=== PATIENT | female | born 1975 | race Caucasian/White ===

== ENCOUNTER 2016-09-24 08:22 | Emergency (ER) | payer SELFPAY ==
[~2016-09-24] VITALS: Ht 157.5 cm; Wt 62.0 kg
[~2016-09-24 08:22] MED LIST: DOXY100T PO; HYDR-3533 PO; ZOFR4TAB3 SL
[2016-09-24 08:25] VITALS: BP 119/78; PULSE 80; RESP 22; TEMP 98.7; O2SAT 100
[2016-09-24 08:42] VITALS: RESP 20; O2SAT 99
[2016-09-24] MEDS ORDERED: ALBU6.7H INH (08:52)
[2016-09-24] MEDS ORDERED: PRED50 PO (08:52)
--- NOTE | 2016-09-24 08:52 | PD ---
HPI Chief Complaint: Respiratory Symptoms Time Seen by Provider: 08:46 Travel History International Travel<30 days: No Contact w/Intl Traveler<30days: No Traveled to known affect area: No History of Present Illness HPI 41-year-old female with history of asthma, presents to the ER today with 3 days history of cough, wheezing, shortness of breath, symptomatic of her asthma. She states that she had ran out of her medications, recently moved from [place]. She denies any fevers, vomiting, chest pains, or any other symptoms. Modifying Factors: None Associated Signs & Symptoms: Cough, shortness of breath, wheezing Risk Factors: Asthma PFSH Past Medical History Asthma: Yes Diminished Hearing: No Respiratory: Yes (asthma) Tetanus Vaccination: > 5 Years Influenza Vaccination: No ?: Not LMP: 09/13/16 Tubal Ligation: Yes Social History Alcohol Use: No Tobacco Use: Yes Substance Use: No Allergies-Medications (Allergen,Severity, Reaction): Coded Allergies: No Known Allergies (Unverified , 09/24/16) Reported Meds & Prescriptions Reported Meds & Active Scripts Active No Active Prescriptions or Reported Medications Review of Systems Except as stated in HPI: all other systems reviewed are Neg Physical Exam Narrative GENERAL: Middle age female patient currently awake, alert, oriented 3. Well- developed and well-hydrated. None acute distress. SKIN: Focused skin assessment warm/dry. HEAD: Atraumatic. Normocephalic. EYES: Pupils equal and round. No scleral icterus. No injection or drainage. ENT: No nasal bleeding or discharge. Mucous membranes pink and moist. NECK: Trachea midline. No JVD. CARDIOVASCULAR: Regular rate and rhythm. No murmur appreciated. RESPIRATORY: No accessory muscle use. Mild bilateral wheezing throughout without crackles, rhonchi. Breath sounds equal bilaterally. GASTROINTESTINAL: Abdomen soft, non-tender, nondistended. Hepatic and splenic margins not palpable. MUSCULOSKELETAL: No obvious deformities. No clubbing. No cyanosis. No edema. NEUROLOGICAL: Awake and alert. No obvious cranial nerve deficits. Motor grossly within normal limits. Normal speech. PSYCHIATRIC: Appropriate mood and affect; insight and judgment normal. Data Data Last Documented VS Vital Signs Date Time Temp Pulse Resp B/P Pulse Ox O2 Delivery O2 Flow Rate FiO2 09/24/16 08:42 70 20 99 Room Air 09/24/16 08:25 98.7 119/78 Orders Albuterol Neb (Albuterol Neb) (09/24/16 09:00) [facility] Medical Decision Making Medical Screen Exam Complete: Yes Emergency Medical Condition: Yes Medical Record Reviewed: Yes Differential Diagnosis Coughing, wheezing, shortness of breathasthma exacerbation versus pneumonia versus URI Narrative Course Appears to be asymptomatic currently and albuterol nebulizer was given. Saturations are stable. At this point, my plan would be to release the patient with follow-up to primary care physician. Return for worsening in symptoms as necessary. The plan has been discussed with the patient and she states understanding. Diagnosis Primary Impression: Asthma exacerbation Med/Other Pt SpecificInfo: Prescription(s) given Scripts Prednisone 50 Mg Tab50 Mg PO DAILY #5 TAB Ref 0 Prov:Kasandra Baldwin MD 09/24/16 Albuterol 6.7 GM Inh (Proventil Hfa 6.7 GM Inh)90 Mcg/Act Aer2 Puff INH Q4-6H PRN (SHORTNESS OF BREATH) #1 INHALER Ref 0 Prov:Kasandra Baldwin MD 09/24/16 Disposition: 01 DISCHARGE HOME Condition: Stable Kasandra Baldwin MD Sep 24, 2016 08:52
[2016-09-24 09:00] VITALS: O2SAT 98
[2016-09-24] MEDS ORDERED: RESP: ALBUTEROL 2.5 MG/3 ML NEB (SCH) INH ONE (09:00)
[2016-09-24 09:40] VITALS: BP 120/81; TEMP 98.1
== END 2016-09-24 09:40 | disposition home or self-care (01) ==
LOC: NEPE 08:22
DX: J45.901 Unspecified asthma with (acute) exacerbation (principal); R05 Cough
CPT/HCPCS: 94664; 99283; J7613